=== PATIENT | female | born 1990 | race Caucasian/White ===

== ENCOUNTER 2016-07-23 10:03 | Emergency (ER) | payer MEDICAID ==
[~2016-07-23] VITALS: Ht 165.1 cm; Wt 77.1 kg
[~2016-07-23 10:03] MED LIST: BISMUTH SUBSALICYLATE; LANS15CA21
[2016-07-23 10:15] VITALS: BP 121/52
== END 2016-07-23 11:40 | disposition left against medical advice (07) ==
LOC: ER 10:05
DX: O26.891 Other specified pregnancy related conditions, first trimester (principal); R10.9 Unspecified abdominal pain; Z53.21 Procedure and treatment not carried out due to patient leaving prior to being seen by health care provider

== ENCOUNTER 2017-02-16 10:00 | Observation (INO) | payer MEDICAID | END 2017-02-16 10:55 | disposition home or self-care (01) | DRG 566 | LOC: LDRP 10:00 | PROVIDERS: ADMIT Specialist; ATTEND Specialist | DX: O62.9 Abnormality of forces of labor, unspecified (principal); Z87.891 Personal history of nicotine dependence; Z3A.34 34 weeks gestation of pregnancy | CPT/HCPCS: 59025; 81002; G0378 ==

== ENCOUNTER 2017-02-23 09:50 | Observation (INO) | payer MEDICAID | END 2017-02-23 10:45 | disposition home or self-care (01) | DRG 563 | LOC: LDRP 09:50 | PROVIDERS: ADMIT Obstetrics & Gynecology; ATTEND Obstetrics & Gynecology | DX: O60.03 Preterm labor without delivery, third trimester (principal); Z3A.35 35 weeks gestation of pregnancy | CPT/HCPCS: 59025; 76815; 81002; G0378 ==

== ENCOUNTER 2017-03-02 10:05 | Observation (INO) | payer MEDICAID ==
[2017-03-02] MEDS ORDERED: LACTATED RINGER'S 1,000 ML IV ONE (11:18)
[2017-03-02] MEDS ORDERED: NIFEdipine 10 MG CAP PO ONE (11:30)
[2017-03-02] MEDS ORDERED: TERBUTALINE SULFATE 1 MG/ML 1ML VIAL SC SCH (11:30)
[2017-03-02] MEDS ORDERED: BETAMETHASONE ACET (6MG/ML) 5ML VIAL IM ONE (14:00)
== END 2017-03-02 15:30 | disposition home or self-care (01) | DRG 563 ==
LOC: LDRP 10:05
PROVIDERS: ADMIT Specialist; ATTEND Specialist
DX: O60.03 Preterm labor without delivery, third trimester (principal); O62.9 Abnormality of forces of labor, unspecified; O26.893 Other specified pregnancy related conditions, third trimester; R10.9 Unspecified abdominal pain; Z3A.35 35 weeks gestation of pregnancy
CPT/HCPCS: 59025; 76815; 81002; 96372; G0378; J0702; J3105

== ENCOUNTER 2017-03-03 14:30 | Observation (INO) | payer MEDICAID ==
[~2017-03-03] VITALS: Ht 165.1 cm; Wt 92.1 kg
[2017-03-03] MEDS ORDERED: BETAMETHASONE ACET (6MG/ML) 5ML VIAL IM ONE (15:15)
== END 2017-03-03 16:50 | disposition home or self-care (01) | DRG 563 ==
LOC: LDRP 14:30
PROVIDERS: ADMIT Specialist; ATTEND Specialist
DX: O60.03 Preterm labor without delivery, third trimester (principal); O26.893 Other specified pregnancy related conditions, third trimester; O62.9 Abnormality of forces of labor, unspecified; R10.9 Unspecified abdominal pain; R51 Headache; Z3A.36 36 weeks gestation of pregnancy
CPT/HCPCS: 59025; 81002; 96372; G0378

== ENCOUNTER 2017-03-07 16:47 | Observation (INO) | payer MEDICAID ==
[2017-03-07] MEDS ORDERED: PREN-96 PO (19:22)
== END 2017-03-07 18:52 | disposition home or self-care (01) | DRG 566 ==
LOC: LDRP 16:47
PROVIDERS: ADMIT Obstetrics & Gynecology; ATTEND Obstetrics & Gynecology
DX: O42.913 Preterm premature rupture of membranes, unspecified as to length of time between rupture and onset of labor, third trimester (principal); Z3A.36 36 weeks gestation of pregnancy
CPT/HCPCS: 59025; 81002; G0378

== ENCOUNTER 2017-03-09 09:50 | Observation (INO) | payer MEDICAID ==
[~2017-03-09 09:50] MED LIST changes: +PREN-96 PO
== END 2017-03-09 10:25 | disposition home or self-care (01) | DRG 563 ==
LOC: LDRP 09:50
PROVIDERS: ADMIT Specialist; ATTEND Specialist
DX: O60.03 Preterm labor without delivery, third trimester (principal); Z3A.37 37 weeks gestation of pregnancy
CPT/HCPCS: 76815; 76817; G0378; 59025; 81002

== ENCOUNTER 2017-03-14 18:05 | Observation (INO) | payer MEDICAID | END 2017-03-14 18:43 | disposition home or self-care (01) | DRG 566 | LOC: LDRP 18:05 | PROVIDERS: ADMIT Specialist; ATTEND Specialist | DX: O26.93 Pregnancy related conditions, unspecified, third trimester (principal); Z3A.38 38 weeks gestation of pregnancy | CPT/HCPCS: 59025; 81002; G0378 ==

== ENCOUNTER 2017-03-16 10:00 | Observation (INO) | payer MEDICAID ==
[2017-03-16 10:46] LABS: Basophils # (auto) 0.1 uL; Basophils % (auto) 0.5 % (0.0-2.0); Eosinophils # (auto) 0.1 uL; Eosinophils % (auto) 0.9 % (0.0-7.0); Hematocrit 37.2 % (36.0-46.0); Hemoglobin 12.5 g/dL (12.2-16.2); Lymphocytes # (auto) 2.1 uL; Lymphocytes % (auto) 18.2 % (10.0-50.0); Mean Corpuscular Hemoglobin 30.5 pg (28.0-32.0); Mean Corpuscular Hgb Conc. 33.5 g/dL (32.0-36.0); Mean Platelet Volume 8.1 fL (6.9-10.8); Monocytes # (auto) 0.6 uL; Monocytes % (auto) 5.3 % (0.0-12.0); Neutrophils # (auto) 8.7 uL; Neutrophils % (auto) 75.1 % (37.0-80.0); Platelet Count (auto) 252 10^3/uL (140-450); Red Cell Distribution Width 13.3 % (11.8-14.3); White Blood Cell 11.6 10^3/uL (4.4-10.8)
== END 2017-03-16 10:50 | disposition home or self-care (01) | DRG 566 ==
LOC: LDRP 10:00
PROVIDERS: ADMIT Obstetrics & Gynecology; ATTEND Obstetrics & Gynecology
DX: O26.893 Other specified pregnancy related conditions, third trimester (principal); R10.9 Unspecified abdominal pain; Z3A.38 38 weeks gestation of pregnancy
CPT/HCPCS: 36415; 59025; 81002; 85025; 86592; G0378

== ENCOUNTER 2017-03-30 07:05 | Inpatient (IN) | payer MEDICAID ==
[~2017-03-30] VITALS: Ht 165.1 cm; Wt 95.3 kg
[~2017-03-30 07:05] MED LIST changes: -BISMUTH SUBSALICYLATE
[2017-03-30] MEDS ORDERED: LACT. RINGERS/OXYTOCIN 20UNITS 1,000 ML IV SCH (07:19)
[2017-03-30] MEDS ORDERED: METHYLERGONOVINE MALEATE 0.2 MG/ML AMP IM PRN (07:30)
[2017-03-30] MEDS ORDERED: PHISODERM TOP SOLN 240ML BTL TOP PRN (07:30)
[2017-03-30] MEDS ORDERED: DERMOPLAST 60ML BOTTLE TOP PRN (07:30)
[2017-03-30] MEDS ORDERED: WITCH HAZEL-GLYCERIN PAD TOP PRN (07:30)
[2017-03-30] MEDS ORDERED: LIDOCAINE 2%HCL (LOCAL ANESTH.) INJ 20ML MDV IJ ONE (07:30)
[2017-03-30] MEDS ORDERED: NALBUPHINE HCL 10 MG/1ml INJECTION IV PRN (07:30)
[2017-03-30 08:14] LABS: Basophils # (auto) 0 uL; Basophils % (auto) 0.2 % (0.0-2.0); Eosinophils # (auto) 0.1 uL; Eosinophils % (auto) 1.1 % (0.0-7.0); Hematocrit 40.6 % (36.0-46.0); Hemoglobin 13.9 g/dL (12.2-16.2); Lymphocytes # (auto) 2.1 uL; Lymphocytes % (auto) 19.8 % (10.0-50.0); Mean Corpuscular Hemoglobin 31.2 pg (28.0-32.0); Mean Corpuscular Hgb Conc. 34.1 g/dL (32.0-36.0); Mean Corpuscular Volume 91.3 fL (80.0-100.0); Mean Platelet Volume 8.5 fL (6.9-10.8); Monocytes # (auto) 0.5 uL; Monocytes % (auto) 5.1 % (0.0-12.0); Neutrophils # (auto) 7.8 uL; Neutrophils % (auto) 73.8 % (37.0-80.0); Platelet Count (auto) 263 10^3/uL (140-450); Red Cell Distribution Width 13.4 % (11.8-14.3); White Blood Cell 10.6 10^3/uL (4.4-10.8)
[2017-03-30 08:22] LABS: Urine Bilirubin Negative (Negative); Urine Blood Negative /uL (Negative); Urine Color Yellow (Yellow); Urine Glucose Normal (Normal); Urine Ketone Negative (Negative); Urine Mucus FEW (None Seen); Urine Nitrite Negative (Negative); Urine RBC <1 /hpf (0 - 4); Urine Squamous Epithelial Cell MOD /hpf (<5); Urine Urobilinogen Normal (Negative); Urine pH 6.5 (5.0-8.0)
[2017-03-30 08:29] LABS: Albumin 2.8 g/dL (3.4-5.0); BUN/Creatinine Ratio 12.2; Calcium 9.9 mg/dL (8.5-10.1); Potassium 3.6 mmol/L (3.5-5.1)
[2017-03-30 08:30] LABS: INR 0.88 (0.9-1.15); Prothrombin Time 9.6 sec (9.37-12.3)
[2017-03-30 08:33] LABS: Bilirubin, Total 0.3 mg/dL (0.2-1.0); Total Protein 7.9 g/dL (6.4-8.2)
[2017-03-30] MEDS ORDERED: fentaNYL CITRATE 100 MCG/2 ML VL IV ONE (19:15)
[2017-03-30] MEDS ORDERED: fentaNYL W ROPIVACAINE 150 ML EPI SCH (19:15)
[2017-03-30] MEDS ORDERED: NALOXONE HCL 0.4 MG/ML VIAL IV ONE (19:15)
[2017-03-30] MEDS ORDERED: LIDOCAINE HCL 2 %PF INJ 10ML AMP IJ ONE (19:15)
[2017-03-30] MEDS ORDERED: ePHEDrine SULFATE 50 MG/ML AMP IV ONE (19:15)
[2017-03-30] MEDS ORDERED: LIDOCAINE W/ EPINEPHRINE 2% INJ 20ML VIAL ONE (20:03)
[2017-03-30] MEDS ORDERED: LIDOCAINE HCL 2 % INJ 2ML MPF IJ ONE (20:30)
[2017-03-30] MEDS: LACTATED RINGER'S 1,000 ML IV SCH (23:02)
[2017-03-31] VITALS (12 sets, daily range): BP systolic 114–131; BP diastolic 52–74
[2017-03-31] MEDS: LACTATED RINGER'S 1,000 ML IV SCH ×4 (07:19→20:48)
[2017-03-31] MEDS ORDERED: LIDOCAINE 2%HCL (LOCAL ANESTH.) INJ 20ML MDV ONE (10:17)
[2017-03-31] MEDS ORDERED: fentaNYL W ROPIVACAINE 150 ML EPI SCH (10:45)
[2017-03-31] MEDS ORDERED: LIDOCAINE W/ EPINEPHRINE 2% INJ 20ML VIAL ONE (11:43)
[2017-03-31] MEDS ORDERED: MORPHINE SULF(PF) 0.5MG/ML 10ML VIAL ONE (11:45)
[2017-03-31] MEDS ORDERED: ePHEDrine SULFATE 50 MG/ML AMP ONE (11:45)
[2017-03-31] MEDS ORDERED: PROPOFOL 10 MG/ML 20 ML IV ONE (11:48)
[2017-03-31] MEDS ORDERED: diphenhdrAMINE HCL 50 MG/1 ML VL IV ONE (11:48)
[2017-03-31] MEDS ORDERED: ONDANSETRON HCL 4 MG/2 ML VIAL IV ONE (11:48)
[2017-03-31] MEDS ORDERED: fentaNYL CITRATE 5 ML ONE (12:02)
[2017-03-31] MEDS ORDERED: ONDANSETRON HCL 4 MG/2 ML VIAL IV PRN (13:00)
[2017-03-31] MEDS ORDERED: NALOXONE HCL 0.4 MG/ML VIAL IV PRN (13:00)
[2017-03-31] MEDS ORDERED: DEXAMETHASONE SOD PHOS 10MG/1ML VIAL INJ IV PRN (13:00)
[2017-03-31] MEDS ORDERED: HYDROmorphone HCL 2 MG/ML VL IV PRN (13:00)
[2017-03-31] MEDS: ceFAZolin 1GM/50ML 50 ML IV SCH ×2 (15:00→22:57)
[2017-03-31] MEDS: KETOROLAC TROMETH 30 MG/ML 1ML VIAL IV SCH ×2 (15:34→23:37)
[2017-03-31] MEDS ORDERED: MORPHINE SULF INJ 2 MG/ML SYRINGE 1ML IV PRN (16:30)
[2017-03-31] MEDS: diphenhdrAMINE HCL 50 MG/1 ML VL IV PRN ×2 (17:48→21:48)
[2017-04-01] MEDS: diphenhdrAMINE HCL 50 MG/1 ML VL IV PRN (02:00)
[2017-04-01] MEDS ORDERED: TETANUS-DIPTH-ACEL PERTUSSIS 0.5ML SYRG IM ONE (02:30)
[2017-04-01] MEDS ORDERED: INFLUENZA QUAD 2017-2018 0.5 ML SYRG IM ONE (02:30)
[2017-04-01 04:30] VITALS: BP 107/51
[2017-04-01] MEDS: LACTATED RINGER'S 1,000 ML IV SCH (04:48)
[2017-04-01] MEDS: KETOROLAC TROMETH 30 MG/ML 1ML VIAL IV SCH (05:44)
[2017-04-01 06:43] LABS: Basophils # (auto) 0 uL; Basophils % (auto) 0.3 % (0.0-2.0); Eosinophils # (auto) 0.1 uL; Eosinophils % (auto) 1.2 % (0.0-7.0); Hematocrit 27.2 % (36.0-46.0); Hemoglobin 9.4 g/dL (12.2-16.2); Lymphocytes # (auto) 1.4 uL; Lymphocytes % (auto) 16.8 % (10.0-50.0); Mean Corpuscular Hemoglobin 31.9 pg (28.0-32.0); Mean Corpuscular Hgb Conc. 34.6 g/dL (32.0-36.0); Mean Corpuscular Volume 92.1 fL (80.0-100.0); Mean Platelet Volume 8.2 fL (6.9-10.8); Monocytes # (auto) 0.5 uL; Monocytes % (auto) 5.6 % (0.0-12.0); Neutrophils # (auto) 6.5 uL; Neutrophils % (auto) 76.1 % (37.0-80.0); Platelet Count (auto) 160 10^3/uL (140-450); Red Cell Distribution Width 13.6 % (11.8-14.3); White Blood Cell 8.5 10^3/uL (4.4-10.8)
[2017-04-01] MEDS: ceFAZolin 1GM/50ML 50 ML IV SCH (06:54)
[2017-04-01] MEDS ORDERED: PROPOFOL 10 MG/ML 20 ML IV ONE ×2 (07:32→07:33)
[2017-04-01] MEDS ORDERED: diphenhdrAMINE HCL 50 MG/1 ML VL ONE (07:32)
[2017-04-01] MEDS ORDERED: OXYTOCIN 10UNIT/ML 1ML VIAL ONE (07:32)
[2017-04-01] MEDS ORDERED: ceFAZolin 1GM VL ONE (07:32)
[2017-04-01 08:00] VITALS: BP 119/65
[2017-04-01] MEDS ORDERED: IBUPROFEN 800 MG TAB PO PRN (09:15)
[2017-04-01] MEDS ORDERED: HYDROcodone-ACET 5/325MG TAB PO PRN ×4 (09:15→10:00)
[2017-04-01] MEDS ORDERED: SIMETHICONE 80 MG CHEWABLE TABLET PO PRN (09:30)
[2017-04-01] MEDS ORDERED: DOCUSATE CALCIUM 240 MG CAP PO PRN (10:00)
[2017-04-01] MEDS ORDERED: DOCUSATE SOD 100 MG CAP PO SCH (10:00)
[2017-04-01] MEDS ORDERED: DOCUSATE CALCIUM 240 MG CAP PO SCH (10:00)
[2017-04-01] MEDS: IBUPROFEN 800 MG TAB PO PRN ×2 (10:10→17:43)
[2017-04-01] MEDS: DOCUSATE SOD 100 MG CAP PO SCH ×2 (10:10→22:00)
[2017-04-01] MEDS ORDERED: SIMETHICONE 80 MG CHEWABLE TABLET PO SCH (12:00)
[2017-04-01 12:11] VITALS: BP 121/68
[2017-04-01] MEDS: HYDROcodone-ACET 5/325MG TAB PO PRN ×2 (14:32→19:16)
[2017-04-01 16:04] VITALS: BP 130/60
[2017-04-01 19:35] VITALS: BP 125/67
[2017-04-02] VITALS: BP 122/68
[2017-04-02] MEDS: HYDROcodone-ACET 5/325MG TAB PO PRN ×2 (00:06→05:47)
[2017-04-02] MEDS: IBUPROFEN 800 MG TAB PO PRN (02:42)
[2017-04-02 04:00] VITALS: BP 111/65
[2017-04-02 08:00] VITALS: BP 121/69
[2017-04-02] MEDS ORDERED: MEASLES, MUMPS & RUBELLA VAC(MMRII) 0.5ML SC ONE (08:15)
== END 2017-04-02 09:30 | disposition home or self-care (01) | DRG 540 ==
LOC: LDRP 07:05
PROVIDERS: ADMIT Specialist; ATTEND Specialist
PROC: 10D00Z1 Extraction of Products of Conception, Low, Open Approach (ICD-10-PCS; principal; 2017-03-31 11:48)
DX: O48.0 Post-term pregnancy (principal); O32.4XX0 Maternal care for high head at term, not applicable or unspecified; O76 Abnormality in fetal heart rate and rhythm complicating labor and delivery; Z88.8 Allergy status to other drugs, medicaments and biological substances; Z37.0 Single live birth; Z3A.40 40 weeks gestation of pregnancy
CPT/HCPCS: 36415; 51702; 59025; 62282; 80053; 80307; 81001; 85025; 85610; 85730; 86850; 86900; 86901; 90471; 90472; 90685; 90715; 94760; 94762; 96361; 96365; 96366; 96374; 96375; J0690; J1885; J2405; J2590; J2704; J3010

== ENCOUNTER 2017-12-02 09:14 | Emergency (ER) | payer MEDICAID, OTHER ==
[~2017-12-02] VITALS: Ht 165.1 cm; Wt 86.2 kg
[~2017-12-02 09:14] MED LIST changes: -LANS15CA21
[2017-12-02 09:26] VITALS: BP 133/74
[2017-12-02] MEDS ORDERED: METHOCARBAMOL 500 MG TAB PO ONE (09:45)
== END 2017-12-02 10:16 | disposition home or self-care (01) ==
LOC: ER 09:18
DX: S00.83XA Contusion of other part of head, initial encounter (principal); Z87.11 Personal history of peptic ulcer disease; Z88.6 Allergy status to analgesic agent; V43.52XA Car driver injured in collision with other type car in traffic accident, initial encounter; Y93.89 Activity, other specified; Y92.488 Other paved roadways as the place of occurrence of the external cause; Y99.8 Other external cause status

== ENCOUNTER 2017-12-03 11:35 | Emergency (ER) | payer OTHER ==
[~2017-12-03] VITALS: Ht 165.1 cm; Wt 86.2 kg
[2017-12-03 11:48] VITALS: BP 151/87
== END 2017-12-03 12:52 | disposition home or self-care (01) ==
LOC: ER 11:35
DX: S80.11XA Contusion of right lower leg, initial encounter (principal); Z88.6 Allergy status to analgesic agent; Z87.11 Personal history of peptic ulcer disease; V43.52XA Car driver injured in collision with other type car in traffic accident, initial encounter; Y93.89 Activity, other specified; Y92.488 Other paved roadways as the place of occurrence of the external cause; Y99.8 Other external cause status
CPT/HCPCS: 73590

== ENCOUNTER 2017-12-09 16:22 | Emergency (ER) | payer OTHER ==
[~2017-12-09] VITALS: Ht 165.1 cm; Wt 86.2 kg
[2017-12-09 17:29] VITALS: BP 125/68
== END 2017-12-09 18:06 | disposition home or self-care (01) ==
LOC: ER 16:28
DX: M25.511 Pain in right shoulder (principal); Z88.6 Allergy status to analgesic agent; Z87.11 Personal history of peptic ulcer disease
CPT/HCPCS: 73030; 81002

== ENCOUNTER 2021-02-14 13:15 | Observation (INO) | payer MEDICAID ==
[~2021-02-14] VITALS: Ht 236 cm; Wt 107.0 kg
[2021-02-14 14:01] VITALS: BP 140/73
[2021-02-14] MEDS ORDERED: LACTATED RINGER'S 1,000 ML IV ONE (14:45)
[2021-02-14] MEDS ORDERED: TERBUTALINE SULFATE 1 MG/ML 1ML VIAL SC SCH (16:15)
== END 2021-02-14 17:15 | disposition home or self-care (01) ==
LOC: ER 13:15 → LDRP 13:25
PROVIDERS: ADMIT Obstetrics & Gynecology; ATTEND Obstetrics & Gynecology
DX: O62.9 Abnormality of forces of labor, unspecified (principal); Z20.822 Contact with and (suspected) exposure to COVID-19; O26.893 Other specified pregnancy related conditions, third trimester; R10.30 Lower abdominal pain, unspecified; R05.9 Cough, unspecified; D84.9 Immunodeficiency, unspecified; R50.9 Fever, unspecified; R51.9 Headache, unspecified; Z3A.36 36 weeks gestation of pregnancy; Z87.11 Personal history of peptic ulcer disease
CPT/HCPCS: 36415; 59025; 76818; 81002; 84112; 87426; 94760; 96360; 96361; 96372; 99284; G0378; J3105; Q0114

== ENCOUNTER 2021-03-10 23:57 | Inpatient (IN) | payer MEDICAID ==
[~2021-03-10] VITALS: Ht 162.6 cm; Wt 104.3 kg
[2021-03-11] VITALS (12 sets, daily range): BP systolic 97–124; BP diastolic 45–71
[2021-03-11] MEDS ORDERED: LACTATED RINGER'S 1,000 ML IV ONE (00:30)
[2021-03-11] MEDS ORDERED: CLINDAMYCIN 900MG IV 50 ML IV ONE (00:30)
[2021-03-11] MEDS ORDERED: GENTAMICIN SULFATE IV ONE ×3 (00:45→08:15)
[2021-03-11] MEDS ORDERED: D5W 5% IV ONE ×3 (00:45→08:15)
[2021-03-11 01:39] LABS: Basophils # (auto) 0 10 ^3/uL (0-0.2); Basophils % (auto) 0.5 % (0.0-2.0); Eosinophils # (auto) 0.2 10 ^3/uL (0-0.8); Hemoglobin 11.4 g/dL (12.2-16.2); Lymphocytes # (auto) 1.4 10 ^3/uL (0.4-5.4); Lymphocytes % (auto) 15.2 % (10.0-50.0); Mean Corpuscular Hemoglobin 31.3 pg (28.0-32.0); Mean Corpuscular Hgb Conc. 34.7 g/dL (32.0-36.0); Mean Corpuscular Volume 90.2 fL (80.0-100.0); Monocytes # (auto) 0.6 10 ^3/uL (0-1.3); Monocytes % (auto) 6.7 % (0.0-12.0); Neutrophils # (auto) 7.1 10 ^3/uL (1.6-8.6); Neutrophils % (auto) 75.6 % (37.0-80.0); Red Blood Cells 3.66 10^6/uL (4.0-5.20); Red Cell Distribution Width 13.5 % (11.8-14.3); White Blood Cell 9.4 10^3/uL (4.4-10.8)
[2021-03-11] MEDS: LACTATED RINGER'S 1,000 ML IV SCH ×2 (01:42→08:30)
[2021-03-11 01:55] LABS: Albumin 2.3 g/dL (3.4-5.0); BUN/Creatinine Ratio 14.8; Calcium 9.2 mg/dL (8.5-10.1); Potassium 3.8 mmol/L (3.5-5.1)
[2021-03-11 01:57] LABS: Bilirubin, Total 0.2 mg/dL (0.2-1.0); Total Protein 6.7 g/dL (6.4-8.2)
[2021-03-11 01:58] LABS: INR 0.93 (0.9-1.15); Partial Thromboplastin Time 23.2 sec (23.6-33.0)
[2021-03-11 02:01] LABS: Urine Bacteria FEW /hpf (None Seen); Urine Blood Negative /uL (Negative); Urine Mucus FEW (None Seen); Urine Specific Gravity 1.026 (1.001-1.035); Urine WBC 2 /hpf (0 - 5)
[2021-03-11 02:16] LABS: Amphetamine Screen, Urine NEGATIVE (NEGATIVE); Barbiturate Scree,Urine NEGATIVE (NEGATIVE); Benzodiazephine Screen, Urine NEGATIVE (NEGATIVE); Cannabinoid Screen, Urine NEGATIVE (NEGATIVE); Cocaine Screen, Urine NEGATIVE (NEGATIVE); Opiate Scree,Urine NEGATIVE (NEGATIVE); Phencyclidine Screen, Urine NEGATIVE (NEGATIVE)
[2021-03-11] MEDS: TERBUTALINE SULFATE 1 MG/ML 1ML VIAL SC SCH ×3 (02:38→03:10)
[2021-03-11] MEDS ORDERED: SODIUM CITR/CITRIC ACID ORAL SOLN 30 ML PO STA (03:08)
[2021-03-11] MEDS ORDERED: MORPHINE SULF PF 2 MG/2 ML SYRG ONE (03:10)
[2021-03-11] MEDS ORDERED: fentaNYL CITRATE 100 MCG/2 ML VL ONE (03:10)
[2021-03-11] MEDS ORDERED: SODIUM CITR/CITRIC ACID ORAL SOLN 30 ML ONE (03:12)
[2021-03-11] MEDS ORDERED: SUCCINYLCHOLINE CHLORIDE 20 MG/ML 10ML VIAL IV ONE (03:13)
[2021-03-11] MEDS ORDERED: TETRACAINE 1% INJ 2 ML VIAL IJ ONE (03:13)
[2021-03-11] MEDS ORDERED: ePHEDrine SULFATE 50 MG/ML AMP ONE (04:24)
[2021-03-11] MEDS ORDERED: MORPHINE SULFATE 4 MG/ML SYR/VIAL IV PRN (04:45)
[2021-03-11] MEDS ORDERED: SIMETHICONE 80 MG CHEWABLE TABLET PO PRN (04:45)
[2021-03-11] MEDS ORDERED: CLINDAMYCIN 600MG IV 50 ML IV ONE (04:45)
[2021-03-11] MEDS ORDERED: KETOROLAC TROMETH 30 MG/ML 1ML VIAL IV PRN (04:45)
[2021-03-11] MEDS ORDERED: GUM (CHEWING) 1 GUM CHEW CHEW ONE (04:45)
[2021-03-11] MEDS ORDERED: ONDANSETRON HCL 4 MG/2 ML VIAL IV PRN ×3 (04:45→05:00)
[2021-03-11] MEDS ORDERED: ePHEDrine SULFATE 50 MG/ML AMP IV PRN (04:45)
[2021-03-11] MEDS ORDERED: DexAMETHasone SOD PHOS 10MG/1ML VIAL INJ IV PRN (05:00)
[2021-03-11] MEDS ORDERED: HYDROmorphone HCL 2 MG/ML VL IV PRN (05:00)
[2021-03-11] MEDS ORDERED: NALBUPHINE HCL 10 MG/1ml INJECTION SUBCUT ONE (05:00)
[2021-03-11] MEDS ORDERED: NALOXONE HCL 0.4 MG/ML VIAL IV PRN (05:00)
[2021-03-11] MEDS: KETOROLAC TROMETH 30 MG/ML 1ML VIAL IV PRN ×3 (08:11→22:36)
[2021-03-11] MEDS: diphenhdrAMINE HCL 50 MG/1 ML VL IV PRN ×2 (13:03→22:42)
[2021-03-11] MEDS ORDERED: ACETAMINOPHEN IV 1000 MG/100ML (10MG/ML) IV PRN (19:30)
[2021-03-11] MEDS ORDERED: DOCUSATE SOD 100 MG CAP PO SCH (22:00)
[2021-03-12] VITALS (7 sets, daily range): BP systolic 115–145; BP diastolic 35–75
[2021-03-12] MEDS ORDERED: IBUPROFEN 600 MG TAB PO SCH (06:00)
[2021-03-12] MEDS ORDERED: HYDROcodone-ACET 5/325MG TAB PO PRN ×5 (06:00→18:45)
[2021-03-12 06:57] LABS: Basophils # (auto) 0 10 ^3/uL (0-0.2); Basophils % (auto) 0.5 % (0.0-2.0); Eosinophils # (auto) 0.2 10 ^3/uL (0-0.8); Hematocrit 29.6 % (36.0-46.0); Hemoglobin 10.2 g/dL (12.2-16.2); Lymphocytes # (auto) 1.1 10 ^3/uL (0.4-5.4); Mean Corpuscular Hemoglobin 31.2 pg (28.0-32.0); Mean Corpuscular Hgb Conc. 34.5 g/dL (32.0-36.0); Mean Corpuscular Volume 90.5 fL (80.0-100.0); Monocytes # (auto) 0.4 10 ^3/uL (0-1.3); Monocytes % (auto) 4.9 % (0.0-12.0); Neutrophils # (auto) 5.9 10 ^3/uL (1.6-8.6); Neutrophils % (auto) 77.6 % (37.0-80.0); Red Blood Cells 3.27 10^6/uL (4.0-5.20); Red Cell Distribution Width 13.8 % (11.8-14.3); White Blood Cell 7.6 10^3/uL (4.4-10.8)
[2021-03-12 07:06] LABS: RPR Non Reactive (Non Reactive)
[2021-03-12] MEDS ORDERED: BISACODYL 10 MG RECT SUPP PR PRN (08:45)
[2021-03-12] MEDS: DOCUSATE CALCIUM 240 MG CAP PO SCH (10:11)
[2021-03-12] MEDS: DOCUSATE SOD 100 MG CAP PO SCH ×2 (10:11→21:46)
[2021-03-12] MEDS: IBUPROFEN 800 MG TAB PO PRN ×2 (10:18→17:48)
[2021-03-12] MEDS: SIMETHICONE 80 MG CHEWABLE TABLET PO SCH ×3 (12:21→21:46)
[2021-03-12] MEDS ORDERED: ACETAMINOPHEN/CODEINE#3 (300/30mg) TAB PO PRN (13:45)
[2021-03-12] MEDS: HYDROcodone-ACET 5/325MG TAB PO PRN ×2 (19:00→23:33)
[2021-03-13] MEDS: IBUPROFEN 800 MG TAB PO PRN ×3 (02:29→17:38)
[2021-03-13 03:25] VITALS: BP 137/70
[2021-03-13] MEDS: HYDROcodone-ACET 5/325MG TAB PO PRN ×4 (04:16→19:10)
[2021-03-13] MEDS: SIMETHICONE 80 MG CHEWABLE TABLET PO SCH ×4 (05:40→23:20)
[2021-03-13 07:10] VITALS: BP 117/57
[2021-03-13] MEDS: DOCUSATE SOD 100 MG CAP PO SCH ×2 (10:03→23:20)
[2021-03-13] MEDS: DOCUSATE CALCIUM 240 MG CAP PO SCH (10:03)
[2021-03-13 11:00] VITALS: BP 106/51
[2021-03-13 16:16] VITALS: BP 120/54
[2021-03-13 19:00] VITALS: BP 128/60
[2021-03-13 23:30] VITALS: BP 129/54
[2021-03-14] MEDS: HYDROcodone-ACET 5/325MG TAB PO PRN ×2 (00:11→05:38)
[2021-03-14] MEDS: IBUPROFEN 800 MG TAB PO PRN ×2 (01:29→09:44)
[2021-03-14 03:18] VITALS: BP 125/57
[2021-03-14] MEDS: SIMETHICONE 80 MG CHEWABLE TABLET PO SCH (05:38)
[2021-03-14 07:00] VITALS: BP 123/62
[2021-03-14 11:00] VITALS: BP 121/61
== END 2021-03-14 11:30 | disposition home or self-care (01) | DRG 540 ==
LOC: LDRP 23:57 → OBSVTOIN 03-11 00:22 → LDRP 03-11 03:27
PROVIDERS: ADMIT Obstetrics & Gynecology Obstetrics; ATTEND Obstetrics & Gynecology Obstetrics
PROC: 10D00Z1 Extraction of Products of Conception, Low, Open Approach (ICD-10-PCS; principal; 2021-03-11 03:18)
DX: O34.211 Maternal care for low transverse scar from previous cesarean delivery (principal); Z20.822 Contact with and (suspected) exposure to COVID-19; Z37.0 Single live birth; Z88.8 Allergy status to other drugs, medicaments and biological substances; Z3A.39 39 weeks gestation of pregnancy
CPT/HCPCS: 36415; 59025; 71045; 80053; 80307; 81001; 81002; 84112; 85025; 85610; 85730; 86592; 86850; 86900; 86901; 87426; 94760; 96360; 96361; 96372; 96374; 96375; G0378; J0131; J0330; J1885; J3490; J7060

== ENCOUNTER 2024-12-04 13:52 | Emergency (ER) | payer MEDICAID ==
[~2024-12-04] VITALS: Ht 162.6 cm; Wt 100.0 kg
[2024-12-04 13:53] VITALS: BP 137/63; PULSE 83; RESP 15; TEMP 98.1; O2SAT 99
== END 2024-12-04 16:00 | disposition left against medical advice (07) ==
LOC: ER 13:52
DX: R51.9 Headache, unspecified (principal); Z53.21 Procedure and treatment not carried out due to patient leaving prior to being seen by health care provider
CPT/HCPCS: 82947